=== PATIENT | female | born 1955 | race Caucasian/White ===

== ENCOUNTER 2021-04-22 19:20 | Observation (INO) | payer MEDICARE, OTHER ==
[~2021-04-22] VITALS: Ht 167.7 cm; Wt 70.0 kg
[2021-04-22] MEDS ORDERED: ONDANSETRON 4 MG/2 ML (SDV) Z0FRAN IVP ONE (19:45)
[2021-04-22] MEDS ORDERED: LACTATED RINGERS 1,000 ML IV SCH (19:45)
[2021-04-22] MEDS ORDERED: HYDROmorphone 2 MG/ML VIAL (DILAUDID) IV ONE (19:45)
--- NOTE | 2021-04-22 19:49 | ED GI ---
General Chief Complaint: Abdominal/GI Problems Stated Complaint: CA PT/ABD PAIN Source of Information: Patient Exam Limitations: No Limitations History of Present Illness Date Seen by Provider: Apr 22, 2021 Time Seen by Provider: 19:47 Initial Comments To ER accompanied by her friend with reports of abdominal pain nausea vomiting. 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 She underwent appendectomy, subsequently partial colectomy. She denies passing any gas today. She is vomiting feculent material. Last chemotherapy was last week. She lives in [place] and is here visiting a friend. Timing/Duration: 1-2 Days Severity/Quality: Cramping Location: Generalized Abdomen Radiation: No Radiation Activities at Onset: None Associated Symptoms: Nausea/Vomiting Allergies and Home Medications Allergies Coded Allergies: No Known Drug Allergies (Unverified , 04/22/21) Patient Home Medication List Home Medication List Reviewed: Yes Review of Systems Review of Systems Constitutional: see HPI EENTM: No Symptoms Reported Respiratory: No Symptoms Reported Cardiovascular: No Symptoms Reported Gastrointestinal: See HPI Genitourinary: No Symptoms Reported Musculoskeletal: no symptoms reported Skin: no symptoms reported Psychiatric/Neurological: No Symptoms Reported Endocrine: No Symptoms Reported Hematologic/Lymphatic: No Symptoms Reported Physical Exam Vital Signs Vital Signs - First Documented 04/22/21 19:33 Temp 36.1 Pulse 56 Resp 16 B/P (MAP) 156/110 (125) Pulse Ox 100 O2 Delivery Room Air Capillary Refill : Height/Weight/BMI Height: '" Weight: lbs. oz. kg; BMI Method: General Appearance: WD/WN, no apparent distress, thin Respiratory: lungs clear, normal breath sounds, no respiratory distress, no accessory muscle use Gastrointestinal: normal bowel sounds, abnormal bowel sounds (Hypoactive), distended, tenderness, other (Firm) Extremities: normal range of motion, non-tender Neurologic/Psychiatric: alert, normal mood/affect, oriented x 3 Skin: normal color, warm/dry Progress/Results/Core Measures Results/Orders Lab Results Laboratory Tests Test 04/22/21 19:50 Range/Units White Blood Count 5.3 4.3-11.0 10^3/uL Red Blood Count 3.86 3.80-5.11 10^6/uL Hemoglobin 12.2 11.5-16.0 g/dL Hematocrit 37 35-52 % Mean Corpuscular Volume 95 80-99 fL Mean Corpuscular Hemoglobin 32 25-34 pg Mean Corpuscular Hemoglobin Concent 33 32-36 g/dL Red Cell Distribution Width 15.6 H 10.0-14.5 % Platelet Count 302 130-400 10^3/uL Mean Platelet Volume 8.6 L 9.0-12.2 fL Immature Granulocyte % (Auto) 1 % Neutrophils (%) (Auto) 68 42-75 % Lymphocytes (%) (Auto) 29 12-44 % Monocytes (%) (Auto) 2 0-12 % Eosinophils (%) (Auto) 0 0-10 % Basophils (%) (Auto) 0 0-10 % Neutrophils # (Auto) 3.6 1.8-7.8 10^3/uL Lymphocytes # (Auto) 1.6 1.0-4.0 10^3/uL Monocytes # (Auto) 0.1 0.0-1.0 10^3/uL Eosinophils # (Auto) 0.0 0.0-0.3 10^3/uL Basophils # (Auto) 0.0 0.0-0.1 10^3/uL Immature Granulocyte # (Auto) 0.0 0.0-0.1 10^3/uL Sodium Level 135 135-145 MMOL/L Potassium Level 3.1 L 3.6-5.0 MMOL/L Chloride Level 99 98-107 MMOL/L Carbon Dioxide Level 23 21-32 MMOL/L Anion Gap 13 5-14 MMOL/L Blood Urea Nitrogen 13 7-18 MG/DL Creatinine 0.73 0.60-1.30 MG/DL Estimat Glomerular Filtration Rate 80 BUN/Creatinine Ratio 18 Glucose Level 113 H 70-105 MG/DL Calcium Level 8.6 8.5-10.1 MG/DL Corrected Calcium 8.7 8.5-10.1 MG/DL Total Bilirubin 0.7 0.1-1.0 MG/DL Aspartate Amino Transf (AST/SGOT) 23 5-34 U/L Alanine Aminotransferase (ALT/SGPT) 18 0-55 U/L Alkaline Phosphatase 76 40-136 U/L Total Protein 7.1 6.4-8.2 GM/DL Albumin 3.9 3.2-4.5 GM/DL Lipase 162 H 8-78 U/L ADDIE Keenan LIMB DRIVER Cbc With Automated Diff (04/22/21 19:44) Comprehensive Metabolic Panel (04/22/21 19:44) Lipase (04/22/21 19:44) Ed Iv/Invasive Line Start (04/22/21 19:44) Ct Abdomen/Pelvis W (04/22/21 19:44) Hydromorphone Injection (Dilaudid Inject (04/22/21 19:45) Ondansetron Injection (Zofran Injectio (04/22/21 19:45) Lactated Ringers (Lr 1000 Ml Iv Solution (04/22/21 19:45) Iohexol Injection (Omnipaque 350 Mg/Ml 1 (04/22/21 20:30) Received Contrast (Hold Metformin- Contr (04/22/21 20:30) Ns (Ivpb) (Sodium Chloride 0.9% Ivpb Bag (04/22/21 20:30) Promethazine Injection (Phenergan Injec (04/22/21 21:45) Ns Iv 500 Ml (Sodium Chloride 0.9%) (04/22/21 21:45) Ng Tube Insert & Assessment (04/22/21 21:55) Chest 1 View, Ap/Pa Only (04/22/21 21:57) Medications Given in ED Current Medications Medications Dose Ordered Sig/Raad Route Start Time Stop Time Status Last Admin Dose Admin Hydromorphone HCl 1 mg ONCE ONCE IV 04/22/21 19:45 04/22/21 19:46 DC 04/22/21 19:58 1 MG Iohexol 100 ml ONCE ONCE IV 04/22/21 20:30 04/22/21 20:31 DC 04/22/21 20:37 85 ML Ondansetron HCl 8 mg ONCE ONCE IVP 04/22/21 19:45 04/22/21 19:46 DC 04/22/21 19:59 8 MG Promethazine HCl 25 mg ONCE ONCE IVP 04/22/21 21:45 04/22/21 21:46 DC 04/22/21 21:51 25 MG Sodium Chloride 100 ml ONCE ONCE IV 04/22/21 20:30 04/22/21 20:31 DC 04/22/21 20:37 80 ML Vital Signs/I&O 04/22/21 19:33 Temp 36.1 Pulse 56 Resp 16 B/P (MAP) 156/110 (125) Pulse Ox 100 O2 Delivery Room Air Diagnostic Imaging Diagonstic Imaging: CT Comments NAME: NUHA TOTH [facility] REC#: [id number] PT STATUS: REG ER : 1955 PHYSICIAN: ADDIE SHEPHERD LIMB DRIVER ADMIT DATE: 04/22/21/ER Draft Date of Exam:04/22/21 CT ABDOMEN/PELVIS W CT ABDOMEN/PELVIS W TECHNIQUE: Multiple contiguous axial images were obtained through the abdomen and pelvis after administration of intravenous contrast. All CT scans use one or more of the following dose optimizing techniques: automated exposure control, MA and/or KvP adjustment based on patient size and exam type or iterative reconstruction. INDICATION: Nausea, vomiting and severe abdominal pain. COMPARISON: 02/21/2018 and 07/21/2019. FINDINGS: Lower chest: The lung bases are clear. No pericardial or pleural effusion. A few small anterior juxtaphrenic lymph nodes on the right are stable. Peritoneum: Large volume of ascites is present and causes scalloping of the liver surface. No free intraperitoneal air. Liver and biliary system: Scalloping throughout the liver surface without focal hepatic lesion. The gallbladder is normal. No biliary duct dilation. Spleen and Pancreas: Spleen is normal. The pancreas enhances normally without mass lesion or peripancreatic inflammatory changes. Adrenals: Normal. tract: The kidneys enhance normally without suspicious mass or obstruction. Bilateral extrarenal pelves are again noted. Urinary bladder is distended without wall thickening. Hysterectomy. GI tract: The stomach is partially filled with fluid. Multiple fluid-filled loops of bowel in the left upper quadrant measuring up to 5 cm. There is an enteric anastomosis in the central abdomen which is likely between the small bowel and colon. The dilated loops extend up to this site. There is a air and stool filled structure in this region likely due to a blind limb from a side to side anastomosis. The bowel wall enhances without features of ischemia. Appendix is not seen and could be surgically absent as right hemicolectomy has likely been performed. Vasculature and Lymph nodes: Normal caliber aorta. No abdominal or pelvic lymphadenopathy. Musculoskeletal: No concerning osseous lesion. IMPRESSION: 1. Right hemicolectomy with a small bowel to colonic anastomosis in the central abdomen. The small bowel loops are dilated up to the level of the anastomosis and this raises the possibility of partial small bowel obstruction. No features of bowel ischemia. 2. 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 Dictated on workstation # [id number] Dict: 04/22/212054 Trans: 04/22/212104 [id number] Interpreted by: RADHA AVERY MD Electronically signed by: Departure Communication (Admissions) [id number] [place] nasogastric tube inserted into the right nostril by me. Immediate return of about 200 mL of6-yellowish gastric contents. Patient tolerated well. Pain and nausea are well controlled at this time. Discussed with Dr. Mckeon and Dr. Thornton, will admit observation status, continue the nasogastric tube to low intermittent wall suction, pain and nausea control. Spoke with her daughter Dot on speaker phone, patient and her daughter are in agreement with being a DO NOT RESUSCITATE status. Impression Primary Impression: Partial small bowel obstruction Disposition: ADMITTED INPATIENT Condition: Stable Admissions Decision to Admit Reason: Admit from ER (General) Decision to Admit/Date: Apr 22, 2021 Time/Decision to Admit Time: 22:06 Transfer Method of Transfer: Private Vehicle Departure-Patient Inst. Referrals: NO,LOCAL PHYSICIAN (PCP/Family) Primary Care Physician ADDIE SHEPHERD APRN Apr 22, 2021 19:49
[2021-04-22 20:00] LABS: BASOPHILS % (AUTO) 0 % (0-10); EOSINOPHILS % (AUTO) 0 % (0-10); HEMATOCRIT 37 % (35-52); HEMOGLOBIN 12.2 g/dL (11.5-16.0); LYMPHOCYTES # (AUTO) 1.6 10^3/uL (1.0-4.0); LYMPHOCYTES % (AUTO) 29 % (12-44); MEAN CORPUSCULAR HEMOGLOBIN 32 pg (25-34); MEAN CORPUSCULAR HGB CONC 33 g/dL (32-36); MEAN CORPUSCULAR VOLUME 95 fL (80-99); MEAN PLATELET VOLUME 8.6 fL (9.0-12.2); MONOCYTES # (AUTO) 0.1 10^3/uL (0.0-1.0); MONOCYTES % (AUTO) 2 % (0-12); NEUTROPHILS # (AUTO) 3.6 10^3/uL (1.8-7.8); NEUTROPHILS % (AUTO) 68 % (42-75); PLATELET COUNT 302 10^3/uL (130-400); WHITE BLOOD COUNT 5.3 10^3/uL (4.3-11.0)
[2021-04-22 20:07] LABS: ALBUMIN 3.9 GM/DL (3.2-4.5); POTASSIUM 3.1 MMOL/L (3.6-5.0)
[2021-04-22 20:08] LABS: CALCIUM 8.6 MG/DL (8.5-10.1)
[2021-04-22 20:10] LABS: TOTAL PROTEIN 7.1 GM/DL (6.4-8.2)
[2021-04-22 20:11] LABS: BILIRUBIN,TOTAL 0.7 MG/DL (0.1-1.0)
[2021-04-22 20:13] LABS: CREATININE SERUM 0.73 MG/DL (0.60-1.30)
[2021-04-22] MEDS ORDERED: HOLD METFORMIN - RECEIVED CONTRAST 20 ML VIAL IV SCH (20:30)
[2021-04-22] MEDS ORDERED: IOHEXOL 350 MG/ML 100 ML (OMNIPAQUE 350) VIAL IV ONE (20:30)
[2021-04-22] MEDS ORDERED: NS 100 ML (IVPB) BAG IV ONE (20:30)
--- NOTE | 2021-04-22 21:05 | Diagnostic Imaging Report ---
CT ABDOMEN/PELVIS W TECHNIQUE: Multiple contiguous axial images were obtained through the abdomen and pelvis after administration of intravenous contrast. All CT scans use one or more of the following dose optimizing techniques: automated exposure control, MA and/or KvP adjustment based on patient size and exam type or iterative reconstruction. INDICATION: Nausea, vomiting and severe abdominal pain. COMPARISON: 02/21/2018 and 07/21/2019. FINDINGS: Lower chest: The lung bases are clear. No pericardial or pleural effusion. A few small anterior juxtaphrenic lymph nodes on the right are stable. Peritoneum: Large volume of ascites is present and causes scalloping of the liver surface. No free intraperitoneal air. Liver and biliary system: Scalloping throughout the liver surface without focal hepatic lesion. The gallbladder is normal. No biliary duct dilation. Spleen and Pancreas: Spleen is normal. The pancreas enhances normally without mass lesion or peripancreatic inflammatory changes. Adrenals: Normal. tract: The kidneys enhance normally without suspicious mass or obstruction. Bilateral extrarenal pelves are again noted. Urinary bladder is distended without wall thickening. Hysterectomy. GI tract: The stomach is partially filled with fluid. Multiple fluid-filled loops of bowel in the left upper quadrant measuring up to 5 cm. There is an enteric anastomosis in the central abdomen which is likely between the small bowel and colon. The dilated loops extend up to this site. There is a air and stool filled structure in this region likely due to a blind limb from a side to side anastomosis. The bowel wall enhances without features of ischemia. Appendix is not seen and could be surgically absent as right hemicolectomy has likely been performed. Vasculature and Lymph nodes: Normal caliber aorta. No abdominal or pelvic lymphadenopathy. Musculoskeletal: No concerning osseous lesion. IMPRESSION: 1. Right hemicolectomy with a small bowel to colonic anastomosis in the central abdomen. The small bowel loops are dilated up to the level of the anastomosis and this raises the possibility of partial small bowel obstruction. No features of bowel ischemia. 2. 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 Dictated by: Dictated on workstation # [id number]
[2021-04-22] MEDS ORDERED: PROMETHAZINE INJ 25 MG/ML (PHENERGAN) AMP IVP ONE (21:45)
[2021-04-22] MEDS ORDERED: NS IV 500 ML 500 ML IV SCH (21:45)
--- NOTE | 2021-04-22 22:27 | Diagnostic Imaging Report ---
CHEST 1 VIEW, AP/PA ONLY Indication: NG tube placement. Comparison: 04/02/2017. Findings: Enteric tube has tip terminating in the mid stomach. Right IJ Port-A-Cath has tip in the upper SVC. Lungs are clear. No pleural effusion or pneumothorax. Normal cardiomediastinal silhouette. Impression: Well-positioned enteric tube with tip in the region of the mid stomach. Dictated by: Dictated on workstation # [id number]
[2021-04-22 23:01] VITALS: BP 145/79
[2021-04-22] MEDS ORDERED: NS W/KCL 40 MEQ/L 1,000 ML IV ONE (23:27)
[2021-04-22] MEDS: NS W/KCL 40 MEQ/L 1,000 ML IV SCH (23:32)
[2021-04-23 04:06] VITALS: BP 150/78
[2021-04-23] MEDS: HYDROmorphone 2 MG/ML VIAL (DILAUDID) IV PRN ×4 (04:48→21:32)
[2021-04-23] MEDS: ONDANSETRON 4 MG/2 ML (SDV) Z0FRAN IV PRN (04:52)
[2021-04-23 06:23] LABS: BASOPHILS % (AUTO) 1 % (0-10); EOSINOPHILS % (AUTO) 1 % (0-10); HEMATOCRIT 34 % (35-52); HEMOGLOBIN 11.2 g/dL (11.5-16.0); LYMPHOCYTES # (AUTO) 1.5 10^3/uL (1.0-4.0); LYMPHOCYTES % (AUTO) 38 % (12-44); MEAN CORPUSCULAR HEMOGLOBIN 31 pg (25-34); MEAN CORPUSCULAR HGB CONC 33 g/dL (32-36); MEAN CORPUSCULAR VOLUME 94 fL (80-99); MEAN PLATELET VOLUME 8.5 fL (9.0-12.2); MONOCYTES # (AUTO) 0.1 10^3/uL (0.0-1.0); MONOCYTES % (AUTO) 2 % (0-12); NEUTROPHILS # (AUTO) 2.4 10^3/uL (1.8-7.8); NEUTROPHILS % (AUTO) 58 % (42-75); PLATELET COUNT 277 10^3/uL (130-400); WHITE BLOOD COUNT 4.1 10^3/uL (4.3-11.0)
[2021-04-23 06:34] LABS: POTASSIUM 4.1 MMOL/L (3.6-5.0)
[2021-04-23 06:35] LABS: CALCIUM 7.9 MG/DL (8.5-10.1)
[2021-04-23 06:39] LABS: CREATININE SERUM 0.63 MG/DL (0.60-1.30)
[2021-04-23 07:31] VITALS: BP 153/86
[2021-04-23] MEDS: PROMETHAZINE INJ 25 MG/ML (PHENERGAN) AMP IVP PRN ×2 (07:53→15:52)
[2021-04-23] MEDS ORDERED: TIZA4TAB4 PO (08:21)
[2021-04-23] MEDS ORDERED: CYCL10TA9 PO (08:21)
[2021-04-23] MEDS ORDERED: CALC-464 PO (08:21)
[2021-04-23] MEDS ORDERED: ACYC-112 PO (08:21)
[2021-04-23] MEDS ORDERED: RIVA20TA PO (08:21)
[2021-04-23] MEDS ORDERED: DICY10CA12 PO (08:21)
[2021-04-23] MEDS ORDERED: PANT40GR PO (08:21)
[2021-04-23] MEDS ORDERED: METO-310 PO (08:21)
[2021-04-23] MEDS ORDERED: ONDA8TAB13 PO (08:21)
[2021-04-23] MEDS ORDERED: ACHD5005 PO (08:21)
[2021-04-23] MEDS ORDERED: PEPP90CA PO (08:21)
[2021-04-23] MEDS ORDERED: PROC10TA10 PO (08:21)
[2021-04-23] MEDS ORDERED: NF-VITD400 PO (08:21)
[2021-04-23] MEDS ORDERED: SIME125T PO (08:21)
[2021-04-23] MEDS: NS W/KCL 40 MEQ/L 1,000 ML IV SCH ×3 (08:35→23:30)
[2021-04-23] MEDS ORDERED: HYDR-3817 PO (09:46)
[2021-04-23] MEDS ORDERED: VITA1CAP PO (09:48)
[2021-04-23] MEDS ORDERED: SENN1TAB33 PO (09:51)
--- NOTE | 2021-04-23 10:09 | Consultation - Surgery ---
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 OSWALDO also reports that her pain is much improved with analgesic medication, and is a 4/10 as of this morning (04/23). She reports a bowel movement in the past 2 days, but has not passed flatus within the last 24 hours. OSWALDO additionally states that she has an appetite, however, she is NPO and has ice chips at bedside for dry mouth. Her last chemo infusion was a week ago, and states she has not had this kind of pain presentation following treatment before. CTA demonstrated bowel loops dilated up to the level of anastomosis and malignant ascites consistent with known cancer; no ischemia was noted. OSWALDO is close with her family and has consistent social support; she is DNR. Allergies and Home Medications Allergies Coded Allergies: No Known Drug Allergies (Unverified , 04/22/21) Patient Home Medication List Acyclovir (Acyclovir) 800 Mg Tablet, 800 MG PO BID, (Reported) Entered as Reported by: CHERRY SAM on 04/23/21820 Last Action: Reviewed Calcium Citrate/Vitamin D2 (Bossman-Citrate Plus Vitamin D Tab) 1 Each Tablet, 2 EACH PO DAILY, (Reported) Entered as Reported by: CHERRY SAM on 04/23/21820 Last Action: Reviewed Cyclobenzaprine HCl (Cyclobenzaprine HCl) 10 Mg Tablet, 10 MG PO TID PRN for prn, (Reported) Entered as Reported by: CHERRY SAM on 04/23/21820 Last Action: Reviewed Dicyclomine HCl (Dicyclomine HCl) 10 Mg Capsule, 10 MG PO QID PRN for CRAMPS, (Reported) Entered as Reported by: CHERRY SAM on 04/23/21820 Last Action: Reviewed Hydrocodone/Acetaminophen (Hydrocodone-Acetamin 7.5-325) 1 Each Tablet, 1 EACH PO Q4H, (Reported) Entered as Reported by: CHERRY SAM on 04/23/21945 Last Action: Reviewed Metoclopramide HCl (Reglan) 10 Mg Tablet, 10 MG PO TID, (Reported) Entered as Reported by: CHERRY SAM on 04/23/21820 Last Action: Reviewed Ondansetron (Ondansetron Odt) 8 Mg Tab.rapdis, 8 MG PO Q8H PRN for NAUSEA/VOMITING, (Reported) Entered as Reported by: CHERRY SAM on 04/23/21820 Last Action: Reviewed Pantoprazole Sodium (Pantoprazole Sodium) 40 Mg Granpkt.dr, 40 MG PO BID, (Reported) Entered as Reported by: CHERRY SAM on 04/23/21820 Last Action: Reviewed Peppermint Oil (Ibgard) 90 Mg Capdr...er, 90 MG PO PRN, (Reported) Entered as Reported by: CHERRY SAM on 04/23/21820 Last Action: Reviewed Prochlorperazine Maleate (Prochlorperazine Maleate) 10 Mg Tablet, 10 MG PO Q6H PRN for NAUSEA/VOMITING-2ND LINE, (Reported) Entered as Reported by: CHERRY SAM on 04/23/21820 Last Action: Reviewed Rivaroxaban (Xarelto) 20 Mg Tablet, 20 MG PO DAILY, (Reported) Entered as Reported by: CHERRY SAM on 04/23/21820 Last Action: Reviewed Sennosides/Docusate Sodium (Sennosides-Docusate Sodium Tab) 1 Each Tablet, 1 EACH PO DAILY, (Reported) Entered as Reported by: CHERRY SAM on 04/23/21950 Last Action: Reviewed Simethicone (Gas-X) 125 Mg Tab.chew, 125 MG PO QID PRN for INDIGESTION, (Reported) Entered as Reported by: CHERRY SAM on 04/23/21820 Last Action: Reviewed Tizanidine HCl (Tizanidine HCl) 4 Mg Tablet, 4 MG PO TID PRN for MUSCLE CRAMPS, (Reported) Entered as Reported by: CHERRY SAM on 04/23/21820 Last Action: Reviewed Vitamin B Complex (Vitamin B Complex) 1 Each Capsule, 1 EACH PO BID, (Reported) Entered as Reported by: CHERRY SAM on 04/23/21947 Last Action: Reviewed Past Znivnuz-Ytozwe-Olapmu Hx Patient Social History Smoking Status: Never a Smoker 2nd Hand Smoke Exposure: No Recent Hopitalizations: Yes (10 days ago ER at [place]/ nausea/abd pain ) Alcohol Use?: No Have you traveled recently?: No Immunizations Up To Date Tetanus Booster (TDap): Less than 5yrs Date of Pneumonia Vaccine: Jun 11, 2019 Date of Influenza Vaccine: Apr 11, 2021 Seasonal Allergies Seasonal Allergies: No Surgeries History of Surgeries: Yes (december 25 all started ) Surgeries: Abdominal, Appendectomy Respiratory History of Respiratory Disorde: Yes (spot on lung) Gastrointestinal History of Gastrointestinal Di: Yes Gastrointestinal Disorders: Colitis, Obstructive Bowel Cancer History of Cancer: Yes (Stage IV Peritoneal cancer) Integumentary History of Skin or Integumenta: No Review of Systems-General Constitutional: chills, malaise, weakness EENTM: No blurred vision, No double vision Gastrointestinal: abdominal pain, nausea, vomiting Genitourinary: No decreased output, No dysuria Musculoskeletal: No back pain, No muscle pain, No muscle cramps Skin: dryness; No rash Psychiatric/Neurological: Denies Headache, Denies Numbness Physical Exam-General Problems Physical Exam Vital Signs Vital Signs 04/23/21 07:31 Temp 36.7 Pulse 66 Resp 20 B/P (MAP) 153/86 (108) Pulse Ox 96 O2 Delivery Room Air Vital Signs - First Documented 04/22/21 19:33 Temp 36.1 Pulse 56 Resp 16 B/P (MAP) 156/110 (125) Pulse Ox 100 O2 Delivery Room Air Capillary Refill : Less Than 3 Seconds General Appearance: WD/WN, no apparent distress Eyes: Bilateral Eye Normal Inspection, Bilateral Eye PERRL, Bilateral Eye EOMI HEENT: PERRL/EOMI, normal ENT inspection Neck: full range of motion, supple Respiratory: chest non-tender, lungs clear, normal breath sounds, no respiratory distress, no accessory muscle use Cardiovascular: regular rate, rhythm, no edema, no gallop, no murmur Peripheral Pulses: 2+ Radial Pulses (R), 2+ Radial Pulses (L) Gastrointestinal: distended (Abdomen hard on palpation), tenderness Rectal: deferred Extremities: non-tender, normal inspection, no pedal edema Neurologic/Psychiatric: asset management coordinator II-XII nml as tested, alert, normal mood/affect, oriented x 3 (Does lose train of thought frequently, likely side effect from chemo) Skin: normal color, warm/dry Data Review Labs Laboratory Tests 04/22/21 19:50: White Blood Count 5.3, Red Blood Count 3.86, Hemoglobin 12.2, Hematocrit 37, Mean Corpuscular Volume 95, Mean Corpuscular Hemoglobin 32, Mean Corpuscular Hemoglobin Concent 33, Red Cell Distribution Width 15.6H, Platelet Count 302, Mean Platelet Volume 8.6L, Immature Granulocyte % (Auto) 1, Neutrophils (%) (Auto) 68, Lymphocytes (%) (Auto) 29, Monocytes (%) (Auto) 2, Eosinophils (%) (Auto) 0, Basophils (%) (Auto) 0, Neutrophils # (Auto) 3.6, Lymphocytes # (Auto) 1.6, Monocytes # (Auto) 0.1, Eosinophils # (Auto) 0.0, Basophils # (Auto) 0.0, Immature Granulocyte # (Auto) 0.0, Sodium Level 135, Potassium Level 3.1L, Chloride Level 99, Carbon Dioxide Level 23, Anion Gap 13, Blood Urea Nitrogen 13, Creatinine 0.73, Estimat Glomerular Filtration Rate 80, BUN/Creatinine Ratio 18, Glucose Level 113H, Calcium Level 8.6, Corrected Calcium 8.7, Total Bilirubin 0.7, Aspartate Amino Transf (AST/SGOT) 23, Alanine Aminotransferase (ALT/SGPT) 18, Alkaline Phosphatase 76, Total Protein 7.1, Albumin 3.9, Lipase 162H 04/23/21 05:57: White Blood Count 4.1L, Red Blood Count 3.59L, Hemoglobin 11.2L, Hematocrit 34L, Mean Corpuscular Volume 94, Mean Corpuscular Hemoglobin 31, Mean Corpuscular Hemoglobin Concent 33, Red Cell Distribution Width 15.6H, Platelet Count 277, Me an Platelet Volume 8.5L, Immature Granulocyte % (Auto) 1, Neutrophils (%) (Auto) 58, Lymphocytes (%) (Auto) 38, Monocytes (%) (Auto) 2, Eosinophils (%) (Auto) 1, Basophils (%) (Auto) 1, Neutrophils # (Auto) 2.4, Lymphocytes # (Auto) 1.5, Monocytes # (Auto) 0.1, Eosinophils # (Auto) 0.0, Basophils # (Auto) 0.0, Immature Granulocyte # (Auto) 0.0, Sodium Level 138, Potassium Level 4.1, Chloride Level 105, Carbon Dioxide Level 22, Anion Gap 11, Blood Urea Nitrogen 9, Creatinine 0.63, Estimat Glomerular Filtration Rate 94, BUN/Creatinine Ratio 14, Glucose Level 88, Calcium Level 7.9L Radiology NAME: NUHA OATES [facility] REC#: [id number] PT STATUS: REG ER : 1955 PHYSICIAN: ADDIE SHEPHERD CLINICAL TRAINING COORDINATOR ADMIT DATE: 04/22/21/ER Signed Date of Exam:04/22/21 CT ABDOMEN/PELVIS W TECHNIQUE: Multiple contiguous axial images were obtained through the abdomen and pelvis after administration of intravenous contrast. All CT scans use one or more of the following dose optimizing techniques: automated exposure control, MA and/or KvP adjustment based on patient size and exam type or iterative reconstruction. INDICATION: Nausea, vomiting and severe abdominal pain. COMPARISON: 02/21/2018 and 07/21/2019. FINDINGS: Lower chest: The lung bases are clear. No pericardial or pleural effusion. A few small anterior juxtaphrenic lymph nodes on the right are stable. Peritoneum: Large volume of ascites is present and causes scalloping of the liver surface. No free intraperitoneal air. Liver and biliary system: Scalloping throughout the liver surface without focal hepatic lesion. The gallbladder is normal. No biliary duct dilation. Spleen and Pancreas: Spleen is normal. The pancreas enhances normally without mass lesion or peripancreatic inflammatory changes. Adrenals: Normal. tract: The kidneys enhance normally without suspicious mass or obstruction. Bilateral extrarenal pelves are again noted. Urinary bladder is distended without wall thickening. Hysterectomy. GI tract: The stomach is partially filled with fluid. Multiple fluid-filled loops of bowel in the left upper quadrant measuring up to 5 cm. There is an enteric anastomosis in the central abdomen which is likely between the small bowel and colon. The dilated loops extend up to this site. There is a air and stool filled structure in this region likely due to a blind limb from a side to side anastomosis. The bowel wall enhances without features of ischemia. Appendix is not seen and could be surgically absent as right hemicolectomy has likely been performed. Vasculature and Lymph nodes: Normal caliber aorta. No abdominal or pelvic lymphadenopathy. Musculoskeletal: No concerning osseous lesion. IMPRESSION: 1. Right hemicolectomy with a small bowel to colonic anastomosis in the central abdomen. The small bowel loops are dilated up to the level of the anastomosis and this raises the possibility of partial small bowel obstruction. No features of bowel ischemia. 2. 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 Dictated by: Dictated on workstation # [id number] Dict: 04/22/212054 Trans: 04/22/212127 [facility] [id number] Interpreted by: RADHA AVERY MD Electronically signed by: RADHA AVERY MD 04/22/212127 Assessment/Plan Assessment/Plan Admission Diagonsis SBO with Peritoneal Metastatic Cancer Assessment/Plan 1. Partial SBO 2. Peritoneal metastatic cancer 3. Abdominal distension 4. Malignant Ascites NG tube in place on low intermittent suctioning Monitor closely Pain control NPO Patient to stay through the night and D/C in the morning per her wishes, and will have friends and family to assist with travel and care. TOMAS STEIN DO 04/23/21 1604: History of Present Illness History of Present Illness History of Present Illness Consult for small bowel obstruction. Patient is a 65-year-old female with history of mucinous adenocarcinoma of the appendix. She had undergo right colon resection. She also has history of HIPEC (heated intraperitoneal chemotherapy) treatment she states this was in 2017. Patient recently having worsening progression of pathology. She was seen at [facility] last month and was told is a nonsurgical candidate at this point due to progression of disease. Patient having increasing nausea and vomiting. She unable to keep anything down despite medical management. Patient's visiting from [place]. She is not passing any flatus or having any bowel movements at this time. She currently has an NG tube in place. She is feeling a little bit better today. She has no fever sweats chills shortness of breath or chest pain. Patient states that she would like to go home today so she get back to her physicians in [place]. CT scan suggestive Right hemicolectomy with a small bowel to colonic anastomosis in the central abdomen. The small bowel loops are dilated up to the level of the anastomosis and this raises the possibility of partial small bowel obstruction. No features of bowel ischemia. 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 Allergies and Home Medications Allergies Coded Allergies: No Known Drug Allergies (Unverified , 04/22/21) Patient Home Medication List Home Medication List Reviewed: Yes Acyclovir (Acyclovir) 800 Mg Tablet, 800 MG PO BID, (Reported) Entered as Reported by: CHERRY SAM on 04/23/21820 Last Action: Reviewed Calcium Citrate/Vitamin D2 (Bossman-Citrate Plus Vitamin D Tab) 1 Each Tablet, 2 EACH PO DAILY, (Reported) Entered as Reported by: CHERRY SAM on 04/23/21820 Last Action: Reviewed Cyclobenzaprine HCl (Cyclobenzaprine HCl) 10 Mg Tablet, 10 MG PO TID PRN for prn, (Reported) Entered as Reported by: CHERRY SAM on 04/23/21820 Last Action: Reviewed Dicyclomine HCl (Dicyclomine HCl) 10 Mg Capsule, 10 MG PO QID PRN for CRAMPS, (Reported) Entered as Reported by: CHERRY SAM on 04/23/21820 Last Action: Reviewed Hydrocodone/Acetaminophen (Hydrocodone-Acetamin 7.5-325) 1 Each Tablet, 1 EACH PO Q4H, (Reported) Entered as Reported by: CHERRY SAM on 04/23/21945 Last Action: Reviewed Metoclopramide HCl (Reglan) 10 Mg Tablet, 10 MG PO TID, (Reported) Entered as Reported by: CHERRY SAM on 04/23/21820 Last Action: Reviewed Ondansetron (Ondansetron Odt) 8 Mg Tab.rapdis, 8 MG PO Q8H PRN for NAUSEA/VOMITING, (Reported) Entered as Reported by: CHERRY SAM on 04/23/21820 Last Action: Reviewed Pantoprazole Sodium (Pantoprazole Sodium) 40 Mg Granpkt.dr, 40 MG PO BID, (Re ported) Entered as Reported by: CHERRY SAM on 04/23/21820 Last Action: Reviewed Peppermint Oil (Ibgard) 90 Mg Capdr...er, 90 MG PO PRN, (Reported) Entered as Reported by: CHERRY SAM on 04/23/21820 Last Action: Reviewed Prochlorperazine Maleate (Prochlorperazine Maleate) 10 Mg Tablet, 10 MG PO Q6H PRN for NAUSEA/VOMITING-2ND LINE, (Reported) Entered as Reported by: CHERRY SAM on 04/23/21820 Last Action: Reviewed Rivaroxaban (Xarelto) 20 Mg Tablet, 20 MG PO DAILY, (Reported) Entered as Reported by: CHERRY SAM on 04/23/21820 Last Action: Reviewed Sennosides/Docusate Sodium (Sennosides-Docusate Sodium Tab) 1 Each Tablet, 1 EACH PO DAILY, (Reported) Entered as Reported by: CHERRY SAM on 04/23/21950 Last Action: Reviewed Simethicone (Gas-X) 125 Mg Tab.chew, 125 MG PO QID PRN for INDIGESTION, (R eported) Entered as Reported by: CHERRY SAM on 04/23/21820 Last Action: Reviewed Tizanidine HCl (Tizanidine HCl) 4 Mg Tablet, 4 MG PO TID PRN for MUSCLE CRAMPS, (Reported) Entered as Reported by: CHERRY SAM on 04/23/21820 Last Action: Reviewed Vitamin B Complex (Vitamin B Complex) 1 Each Capsule, 1 EACH PO BID, (Reported) Entered as Reported by: CHERRY SAM on 04/23/21947 Last Action: Reviewed Past Utdvaom-Fdbksw-Lbliem Hx Reviewed Nursing Assessment Reviewed/Agree w Nursing PMH: Yes Family Medical History Significant Family History: No Pertinent Family Hx Review of Systems-General Constitutional: No diaphoresis; weakness EENTM: No hearing loss, No blurred vision Respiratory: No cough, No dyspnea on exertion Gastrointestinal: abdominal pain, nausea, vomiting Genitourinary: No decreased output, No dysuria Musculoskeletal: No muscle pain, No muscle cramps Skin: No change in color, No rash Psychiatric/Neurological: Denies Anxiety, Denies Depressed, Denies Emotional Problems All Other Systems Reviewed Negative Unless Noted: Yes (Negative excepted noted.) Physical Exam-General Problems Physical Exam General Appearance: WD/WN, no apparent distress HEENT: PERRL/EOMI, normal ENT inspection, other (NG tube) Neck: full range of motion, supple Respiratory: chest non-tender, lungs clear Cardiovascular: regular rate, rhythm, no JVD Gastrointestinal: tenderness (Mild diffusely), other (Firmness around lower portion of abdomen) Rectal: deferred Back: no CVA tenderness, no vertebral tenderness Extremities: non-tender, normal inspection Neurologic/Psychiatric: asset management coordinator II-XII nml as tested, alert, normal mood/affect, oriented x 3 Skin: normal color, warm/dry Lymphatic: no adenopathy Assessment/Plan Assessment/Plan Assessment/Plan Small bowel obstruction secondary to 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 She understands process of her pathology. Patient likely will not have any significant improvement. She is considering hospice care as well. Since patient is going to go home to her physicians I think it is okay to pull NG tube and DC home when she is ready. I also discussed with her and her daughter on the phone who is in agreement with plan however we need to make sure that she has arrangements for being driven home and all the care she needs lined up. Patient is agreeable to staying tonight and then being discharged tomorrow. We discussed leaving the NG tube in tonight to continue conservative measures which I think will still be beneficial to help decrease the dilatation and this also may help improve her overall symptoms. As for her surgical needs I feel that there is progression of her disease and not going to have any significant benefit if operated on. This is the same recommendation she received from MD Shah she states. Supervisory-Addendum Brief Verification & Attestation Participated in pt care: history, MDM, physical Personally performed: exam, history, MDM, supervision of care Care discussed with: Medical Student Procedures: n/a Results interpretation: Verified all documentation Verification and Attestation of Medical Student E/M Service A medical student performed and documented this service in my presence. I reviewed and verified all information documented by the medical student and made modifications to such information, when appropriate. I personally performed the physical exam and medical decision making. Tomas Stein, Apr 23, 2021,16:15 PORSCHE ALBERTS Apr 23, 2021 10:09 TOMAS STEIN DO Apr 23, 2021 16:04
[2021-04-23 11:41] VITALS: BP 118/84
[2021-04-23] MEDS ORDERED: CHLORASEPTIC SPRAY 177 ML LIQUID MC PRN (15:45)
[2021-04-23 16:00] VITALS: BP 134/86
--- NOTE | 2021-04-23 17:56 | History & Physical-Hospitalist ---
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 She lives in [place] and was visiting a friend in the area. She reports that she was told by her doctors that she would eventually develop an obstruction due to her disease. Her last bowel movement was three days ago. She is not passing gas. She had an NG tube placed in the ER but has still been dry heaving. She is not having any nausea or abdominal pain upon my exam. She has discussed palliative care and hospice and plans is planning to get set up with this soon. Source: patient Exam Limitations: no limitations Date Seen 04/23/21 Time Seen by a Provider: 10:45 Attending Physician Sherrill Zamora MD PCP No,Local Physician Referring Physician Date of Admission Apr 22, 2021 at 22:03 Home Medications & Allergies Home Medications Reviewed patient Home Medication Reconciliation performed by pharmacy medication reconciliations staking technician and/or nursing. Patients Allergies have been reviewed. Allergies Allergies Coded Allergies No Known Drug Allergies (Ytjaedvluh52/12/21) Past Thjpdef-Ylqlbs-Qaplqc Hx Patient Social History Tobacco Use?: No Smoking Status: Never a Smoker Use of E-Cig and/or Vaping dev: No Substance use?: No Alcohol Use?: No Pt feels they are or have been: No Immunizations Up To Date Date of Influenza Vaccine: Apr 11, 2021 Date of Pneumonia Vaccine: Jun 11, 2019 Seasonal Allergies Seasonal Allergies: No Current Status Advance Directives: No Communicates: Verbally Primary Language: Slovenian Preferred Spoken Language: Slovenian Is interpretation needed?: No Implanted or Applied Medical D: None Past Medical History Surgeries: Abdominal, Appendectomy Colitis, Obstructive Bowel Colon (appendiceal) What Type of Treatment Did You: Chemotherapy Family Medical History No Pertinent Family Hx Review of Systems Constitutional: no symptoms reported EENTM: no symptoms reported Respiratory: no symptoms reported Cardiovascular: no symptoms reported Gastrointestinal: nausea, vomiting Genitourinary: no symptoms reported Musculoskeletal: no symptoms reported Skin: no symptoms reported Psychiatric/Neurological: No Symptoms Reported Physical Exam Physical Exam Vital Signs Vital Signs - First Documented 04/22/21 19:33 Temp 36.1 Pulse 56 Resp 16 B/P (MAP) 156/110 (125) Pulse Ox 100 O2 Delivery Room Air Capillary Refill : Less Than 3 Seconds Height, Weight, BMI Height: '" Weight: lbs. oz. kg; 24.89 BMI Method: General Appearance: No Apparent Distress, WD/WN HEENT: PERRL/EOMI, Pharynx Normal Neck: Normal Inspection, Supple Respiratory: Lungs Clear, Normal Breath Sounds, No Respiratory Distress Cardiovascular: Regular Rate, Rhythm, No Edema, No Murmur Gastrointestinal: Normal Bowel Sounds, Tenderness, Other (rigid) Extremity: Normal Inspection, Non Tender, No Pedal Edema Neurologic/Psychiatric: Alert, Oriented x3, No Motor/Sensory Deficits, Normal Mood/Affect Skin: Normal Color, Warm/Dry Results Results/Procedures Labs Laboratory Tests 04/22/21 19:50 04/23/21 05:57 Patient resulted labs reviewed. Imaging: Reviewed Imaging Report Assessment/Plan Admission Diagnosis Partial small bowel obstruction Admission Status: Observation Assessment and Plan Partial small bowel obstruction Metastatic appendiceal carcinoma Peritoneal carcinomatosis Poor prognosis CT showed partial small bowel obstruction Surgery consulted NG tube in place to suction NPO Zofran as needed Unlikely to improve with underlying untreatable malignancy causing her symptoms Likely discharge tomorrow with plans to follow up with PCP/oncologist/hospice Diagnosis/Problems Diagnosis/Problems (1) Partial small bowel obstruction Status: Acute (2) Cancer of appendix Status: Acute (3) Malignant neoplasm of colon metastatic to peritoneum Status: Acute (4) Poor prognosis Status: Acute SHERRILL ZAMORA MD Apr 23, 2021 17:56
[2021-04-23] MEDS ORDERED: ENOXAPARIN 40 MG/0.4 ML (LOVENOX) SYR SC SCH (18:15)
[2021-04-23 20:49] VITALS: BP 141/74
[2021-04-23 23:30] VITALS: BP 111/62
[2021-04-24] MEDS: ONDANSETRON 4 MG/2 ML (SDV) Z0FRAN IV PRN ×2 (01:31→10:31)
[2021-04-24] MEDS: HYDROmorphone 2 MG/ML VIAL (DILAUDID) IV PRN ×2 (01:31→10:31)
[2021-04-24 04:56] VITALS: BP 137/84
[2021-04-24] MEDS: NS W/KCL 40 MEQ/L 1,000 ML IV SCH (06:37)
[2021-04-24 07:53] VITALS: BP 126/88
[2021-04-24] MEDS ORDERED: RIVAROXABAN 20 MG TABLET (XARELTO) PO SCH (09:00)
--- NOTE | 2021-04-24 09:19 | Progress Note - Surgery ---
ROBERTOLiliaPORSCHE CALIX 04/24/21 0919: Subjective Date Seen by a Provider: Apr 24, 2021 Time Seen by a Provider: 09:11 Subjective/Events-last exam Toma is resting in bed with NG tube in place. She states she is passing flatus, and has pain under control. She is to be discharged today to travel back home to be closer to primary physicians and family. Review of Systems General: No Chills, No Night Sweats HEENT: No Head Aches, No Visual Changes Pulmonary: No Dyspnea, No Cough Cardiovascular: No: Chest Pain, Palpitations Gastrointestinal: Nausea, Vomiting, Abdominal Pain Genitourinary: No Dysuria, No Frequency Musculoskeletal: No: arm pain, leg pain Neurological: Weakness; No: Numbness Focused Exam Respiratory: Chest Non Tender, Lungs Clear Cardiovascular: Regular Rate, Rhythm, No Edema Peripheral Pulses: 2+ Radial Pulses (R), 2+ Radial Pulses (L) Skin: normal color, warm/dry Objective Exam Vital Signs Date Time Temp Pulse Resp B/P (MAP) Pulse Ox O2 Delivery O2 Flow Rate FiO2 04/24/21 07:53 38.0 71 20 126/88 (101) 98 Room Air 04/24/21 04:56 36.1 63 16 137/84 (101) 97 Room Air 04/23/21 23:30 36.7 68 18 111/62 (78) 96 Room Air 04/23/21 20:49 36.8 67 20 141/74 (96) 96 Room Air 04/23/21 19:31 Room Air 04/23/21 16:00 36.7 70 20 134/86 (102) 97 Room Air 04/23/21 11:41 36.9 72 20 118/84 (95) 96 Room Air I & O 04/24/21 07:00 Intake Total 2000 ml Output Total 1053 ml Balance 947 ml Capillary Refill : Less Than 3 Seconds General Appearance: No Apparent Distress, WD/WN HEENT: PERRL/EOMI, Pharynx Normal Neck: Normal Inspection, Supple Respiratory: Lungs Clear, Normal Breath Sounds, No Respiratory Distress Cardiovascular: Regular Rate, Rhythm, No Edema, No Murmur Peripheral Pulses: 2+ Radial Pulses (R), 2+ Radial Pulses (L) Gastrointestinal: tenderness (Mild diffusely), other (Firmness around lower portion of abdomen) Extremity: Normal Inspection, Non Tender, No Pedal Edema Neurologic/Psychiatric: Alert, Oriented x3, No Motor/Sensory Deficits, Normal Mood/Affect Skin: Normal Color, Warm/Dry Assessment/Plan Assessment/Plan Assessment/Plan 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 Arrangements for being driven home and all care she needs is lined up. Plan discussed with patient and her daughter; both are in agreement with this plan. TOMAS MCKEON Ran DO 04/24/21 1415: Subjective Subjective/Events-last exam Patient states she did well overnight. She has her abdominal pain under control. She has not had any nausea or vomiting. She does have NG tube in place. She states that she is passing some flatus now. She is going to be discharged today to go back home would be closer to her physicians in [place]. She states she understands that she is nonoperable and understands the progression of her pathology. She denies any fever sweats chills shortness of breath or chest pain at this time. Objective Exam General Appearance: No Apparent Distress, WD/WN HEENT: PERRL/EOMI, Other (NG tube) Neck: Normal Inspection, Non Tender, Supple Respiratory: Chest Non Tender, No Accessory Muscle Use, No Respiratory Distress Cardiovascular: Regular Rate, Rhythm, No Edema Gastrointestinal: tenderness (Minimal with deep palpation), other (Firmness around lower portion of abdomen) Extremity: Normal Inspection, Non Tender Neurologic/Psychiatric: Alert, Oriented x3, No Motor/Sensory Deficits, Normal Mood/Affect Skin: Normal Color, Warm/Dry Lymphatic: No Adenopathy Assessment/Plan Assessment/Plan Assessment/Plan 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 Arrangements for being driven home and all care she needs is lined up. Plan discussed with patient and her daughter; both are in agreement with this plan. Supervisory-Addendum Brief Verification & Attestation Participated in pt care: history, MDM, physical Personally performed: exam, history, MDM, supervision of care Care discussed with: Medical Student Procedures: n/a Results interpretation: Verified all documentation Verification and Attestation of Medical Student E/M Service A medical student performed and documented this service in my presence. I reviewed and verified all information documented by the medical student and made modifications to such information, when appropriate. I personally performed the physical exam and medical decision making. Tomas Mckeon, Apr 24, 2021,09:55 PORSCHE ALBERTS Apr 24, 2021 09:19 TOMAS MCKEON DO Apr 24, 2021 14:15
== END 2021-04-24 10:30 | disposition home or self-care (01) ==
LOC: ER 19:22 → 4TH 22:03
PROVIDERS: ADMIT Internal Medicine; ATTEND Internal Medicine
DX: K56.609 Unspecified intestinal obstruction, unspecified as to partial versus complete obstruction (principal); K52.9 Noninfective gastroenteritis and colitis, unspecified; C78.6 Secondary malignant neoplasm of retroperitoneum and peritoneum; C76.8 Malignant neoplasm of other specified ill-defined sites; R14.0 Abdominal distension (gaseous); R18.0 Malignant ascites; Z79.899 Other long term (current) drug therapy; Z90.89 Acquired absence of other organs
CPT/HCPCS: 71045; 74177; 80048; 80053; 83690; 85025 ×2; 96361; 96374; 96375; 99284; G0378; 36415